=== PATIENT | female | born 1940 | race Two or more races ===

== ENCOUNTER 2019-05-12 14:11 | Inpatient (IN) | payer OTHER ==
--- NOTE | 2019-05-12 14:46 | PDOC ---
History of Present Illness - General History Source: Patient Exam Limitations: No Limitations, Language Barrier - History of Present Illness Initial Comments: Lena Hargrove is a 78 yo F w a hx of HTN, HCL, GERD, and recent UTI this past Wednesday diagnosed by her urologist Emiliana Colbert and treated with ciprofloxacin and phenazopyridine who presents to the [facility] er with persistent fevers, generalized body aches and pains, nausea, no vomiting, and persistent symptoms. The patient endorses left lower abdominal tenderness as well. She endorses nausea but no emesis. She took 975 mg of tylenol for her fevers last night but no anti-pyretics today. She recently travelled to [place] and returned this past Wednesday 5 days ago. She states her urine has been very discolored since she started taking the medications this past Wednesday. Patient was only taking ciprofloxacin once a day when she was supposed to take it 3 times a day because she didn't think it was helping. Denies chest pain, SOB, productive cough, vomiting, diarrhea, rashes, headache, blurry vision. PCP: Kobi Colbert Urologist: Emiliana Colbert PSH: cholecystectomy Social Hx: Denies smoking, drinking, or other subsatance usage Allergies: NKA, NKDA 05/12/19 16:08 <Sourav Mercer - Last Filed: 05/13/19 12:28> <Tamera Hunt - Last Filed: 05/13/19 15:02> - General Chief Complaint: SIRS, Suspected/Possible Stated Complaint: FEVER Time Seen by Provider: 05/12/19 14:45 Past History - Past Medical History COPD: No Disorders: Yes - Psycho Social/Smoking Cessation Hx Smoking History: Never smoked <Sourav Mercer - Last Filed: 05/13/19 12:28> <Tamera Hunt - Last Filed: 05/13/19 15:02> - Past Medical History Allergies/Adverse Reactions: Allergies Allergy/AdvReac Type Severity Reaction Status Date / Time No Known Allergies Allergy Verified 05/12/19 14:15 Home Medications: Ambulatory Orders Amlodipine Besylate 5 mg PO DAILY 05/12/19 Atorvastatin Calcium 20 mg PO DAILY 05/12/19 Mirabegron [Myrbetriq] 50 mg PO ASDIR 02/28/20 Pantoprazole Sodium 40 mg PO DAILY 05/12/19 Phenazopyridine HCl 1 tab PO TID 05/12/19 Review of Systems - Review of Systems Able to Perform ROS?: Yes Comments:: CONSTITUTIONAL: Present: Fevers, chills, fatigue EYES: Absent: visual changes ENT: Absent: ear pain, no sore throat CARDIOVASCULAR: Absent: chest pain, no palpitations RESPIRATORY: Absent: cough, no SOB GI: Present: Abdominal pain, nausea Absent: no vomiting, no constipation, no diarrhea GENITOURINARY: Present: dysuria, freuquency Absent: no hematuria MUSKULOSKELETAL: Present: back pain, myalgia Absent: no arthralgia SKIN: Absent: rash NEURO: Absent: headache <Sourav Mercer - Last Filed: 05/13/19 12:28> *Physical Exam - Vital Signs Last Vital Signs Temp Pulse Resp BP Pulse Ox 98.5 F 101 H 18 121/50 L 95 05/12/19 14:20 05/12/19 14:20 05/12/19 14:20 05/12/19 14:20 05/12/19 14:20 - Physical Exam GENERAL: Well-appearing, well-nourished. Mild distress. HEENT: Normocephalic, atraumatic. PERRL, EOM intact. CARDIOVASCULAR: Tachycardic rate. Normal S1, S2. Regular rhythm. PULMONARY: No evidence of respiratory distress. Lungs clear to auscultation bilaterally. No wheezing, rales or rhonchi. ABDOMEN: There is mild left lower abdominal TTP. Soft, non-distended, Normal BS. BACK: There is left sided flank pain EXTREMITIES: Normal ROM in all four extremities. No gross deformities. SKIN: Warm, dry. No rash NEUROLOGICAL: No focal neurological deficits. <Sourav Mercer - Last Filed: 05/13/19 12:28> - Vital Signs Last Vital Signs Temp Pulse Resp BP Pulse Ox 99.6 F 79 18 105/59 L 95 05/13/19 07:57 05/13/19 07:57 05/13/19 07:57 05/13/19 07:57 05/13/19 09:00 <Tamera Hunt - Last Filed: 05/13/19 15:02> ED Treatment Course - LABORATORY CBC & Chemistry Diagram: 05/13/19 09:45 05/13/19 06:48 <Sourav Mercer - Last Filed: 05/13/19 12:28> - LABORATORY CBC & Chemistry Diagram: 05/13/19 09:45 05/13/19 06:48 - ADDITIONAL ORDERS Additional order review: 05/12/19 15:00 Blood Culture - Preliminary Blood - Peripheral Venous Pending Organism 05/12/19 14:45 Blood Culture - Preliminary Blood - Peripheral Venous Pending Organism 05/12/19 14:45 RBC 4.28 MCV 86.4 MCHC 33.4 RDW 13.6 MPV 10.5 Neutrophils % 90.8 H Lymphocytes % 2.0 L Monocytes % 6.3 Eosinophils % 0.8 Basophils % 0.1 - Medications Given in the ED: ED Medications Discontinued Medications Generic Name Dose Route Start Last Admin Trade Name Cesilia PRN Reason Stop Dose Admin Acetaminophen 1,000 mg 05/12/19 18:02 05/12/19 22:38 Ofirmev Injection - IVPB 05/12/19 18:03 Not Given ONCE ONE Sodium Chloride 2,313 mls @ 1,156.5 mls/hr 05/12/19 14:47 05/12/19 15:20 Normal Saline - 30 ml/kg infuse over 2 hr (2313 ml) 05/12/19 16:46 1,156.5 mls/hr IV Administration ONCE ONE Ceftriaxone Sodium 1,000 mg/ 50 mls @ 100 mls/hr 05/12/19 15:51 05/12/19 15: 54 Dextrose IVPB 05/12/19 16:20 100 mls/hr ONCE ONE Administration Ceftriaxone Sodium 1 gm/ 50 mls @ 100 mls/hr 05/13/19 10:00 05/13/19 09:41 Dextrose IVPB 100 mls/hr DAILY FELY Administration Protocol Ceftriaxone Sodium 1 gm/ 50 mls @ 200 mls/hr 05/13/19 13:00 05/13/19 13:22 Dextrose IVPB 05/13/19 13:14 200 mls/hr ONCE ONE Administration Protocol Ondansetron HCl 4 mg 05/12/19 17:56 05/12/19 22:42 Zofran Injection IVPUSH 05/12/19 17:57 Not Given ONCE ONE Potassium Chloride 40 meq 05/12/19 16:53 05/12/19 16:56 Potassium Chloride Oral Liquid PO 05/12/19 16:54 40 meq ONCE ONE Administration Sodium Chloride 1,000 ml 05/12/19 18:03 05/12/19 22:39 Normal Saline - IV 05/12/19 18:04 Not Given ONCE ONE <Tamera Hunt - Last Filed: 05/13/19 15:02> Medical Decision Making - Medical Decision Making Patient was only taking ciprofloxacin once a day when she was supposed to take it 3 times a day because she didn't think it was helping. Lena Hargrove is a 78 yo F w a hx of HTN, HCL, GERD, and recent UTI this past Wednesday diagnosed by her urologist Emiliana Colbert and treated with ciprofloxacin and phenazopyridine who presents to the [facility] er with persistent fevers, generalized body aches and pains, nausea, no vomiting, and persistent symptoms. The patient endorses left lower abdominal tenderness as well. She endorses nausea but no emesis. She took 975 mg of tylenol for her fevers last night but no anti-pyretics today. She recently travelled to [place] and returned this past Wednesday 5 days ago. She states her urine has been very discolored since she started taking the medications this past Wednesday. Denies chest pain, SOB, productive cough, vomiting, diarrhea, rashes, headache, blurry vision. Vital Signs Temp Pulse Resp BP Pulse Ox 98.5 F 101 H 18 121/50 L 95 05/12/19 14:20 05/12/19 14:20 05/12/19 14:20 05/12/19 14:20 05/12/19 14:20 DDx IBNLT: UTI, pyelonephritis, diverticulitis, PNA, electrolyte/metabolic disturbance, Malaria, influenza, Plan: Labs, Urine, XR, IV hydration, re-assess Labs: Leukocytosis with left shift Urine: Suggests dirty urine infection XR: Unremarkable Re-assessment: Patient admits to not being compliant with her Abx - I called up Emiliana Colbert's office to find out the results of his urine culture but the office said the results were not yet back Disposition: Med/Surg for UTI and Left sided Pylonphritis <Sourav Mercer - Last Filed: 05/13/19 12:28> Discharge - Discharge Information Problems reviewed: Yes - Admission Yes <Sourav Mercer - Last Filed: 05/13/19 12:28> - Admission Yes <Tamera Hunt - Last Filed: 05/13/19 15:02> - Discharge Information Clinical Impression/Diagnosis: Pyelonephritis of left kidney Sepsis Qualifiers: Sepsis type: sepsis due to unspecified organism Sepsis acute organ dysfunction status: unspecified Qualified Code(s): A41.9 - Sepsis, unspecified organism Condition: Stable
[2019-05-12] MEDS ORDERED: SODIUM CHLORIDE 2,313 ML IV ONE (14:47)
[2019-05-12 15:17] LABS: BASO % 0.1 % (0-2.0); EOS % 0.8 % (0-4.5); HEMOGLOBIN 12.3 GM/dL (10.7-15.3); MCH 28.8 pg (25.7-33.7); MCHC 33.4 g/dl (32.0-36.0); MEAN CELL VOLUME 86.4 fl (80-96); MEAN PLT VOLUME 10.5 fl (7.5-11.1); MONO % 6.3 % (3.8-10.2); NEUT % 90.8 % (42.8-82.8); PLATELET COUNT 110 K/MM3 (134-434); RBC 4.28 M/mm3 (3.60-5.2); RDW 13.6 % (11.6-15.6); WHITE BLOOD COUNT 18.1 K/mm3 (4.0-10.0)
[2019-05-12 15:27] LABS: INR 1.15 (0.83-1.09); PROTHROMBIN TIME (PATIENT) 13.6 SEC (9.7-13.0)
[2019-05-12 15:30] LABS: ACTIVATED PTT 27.5 SECONDS (25.2-36.5)
[2019-05-12 15:47] LABS: EPI CELLS 8.1 /HPF (0-5/HPF); HYALINE CASTS 20 /lpf (0-8); PH,URINE 5.5 (5.0-8.0); URINE APPEARANCE TURBID; URINE BACTERIA 5123.6 /hpf (NEGATIVE); URINE BILIRUBIN 1+ (NEGATIVE); URINE COLOR DK YELLOW; URINE GLUCOSE (UA) NEGATIVE (NEGATIVE); URINE KETONE NEGATIVE (NEGATIVE); URINE LEUK ESTERASE 3+ (NEGATIVE); URINE NITRITE POSITIVE (NEGATIVE); URINE PROTEIN 2+ (NEGATIVE); URINE RBC 19 /hpf (0-4); URINE WBC 1308 /hpf (0-5)
[2019-05-12] MEDS ORDERED: CEFTRIAXONE 1,000 MG in DEXTROSE 5%-WATER - 50 ML IVPB ONE (15:51)
[2019-05-12] MEDS ORDERED: cefTRIAXone SODIUM 1 GM VIAL ONE (15:58)
--- NOTE | 2019-05-12 16:50 | PDOC ---
Attending Attestation - Resident Resident Name: Sourav Mercer - ED Attending Attestation I have performed the following: I have examined & evaluated the patient, The case was reviewed & discussed with the resident, I agree w/resident's findings & plan - HPI HPI: 05/12/19 16:49 78 yo F w a hx of HTN, HCL, GERD, and recent UTI this past Wednesday diagnosed by her urologist Emiliana Colbert and treated with ciprofloxacin and phenazopyridine who presents to the [facility] er with persistent fevers (Tmax 104), generalized body aches and pains, nausea, and urinary sx. The patient endorses left lower abdominal tenderness as well. She took 975 mg of tylenol for her fevers last night but no anti-pyretics today. She recently travelled to [place] and returned this past Wednesday 5 days ago. She states her urine has been very discolored since she started taking the medications this past Wednesday. Patient was only taking ciprofloxacin once a day when she was supposed to take it 3 times a day because she didn't think it was helping. rx'd by her urologist Denies chest pain, SOB, productive cough, vomiting, diarrhea, rashes, headache, blurry vision. PCP: Kobi Colbert 05/12/19 17:40 - Physicial Exam PE: 05/12/19 16:49 Agree with the resident's HPI and PE as documented in the electronic medical record. NAD, well appearing, EOMI, PERRL, nl conjunctiva, anicteric; neck supple. lungs clear, RRR, abdomen soft nontender. no rebound, guarding. no CVAT. Back nontender. BOATENG x4, no focal neuro deficits. No peripheral edema. normal color for ethnicity, WWP. 05/12/19 17:40 - Medical Decision Making 05/12/19 16:49 Vital Signs Temp Pulse Resp BP Pulse Ox 98.5 F 101 H 18 121/50 L 95 05/12/19 14:20 05/12/19 14:20 05/12/19 14:20 05/12/19 14:20 05/12/19 14:20 vs reviewed, afebrile historically with Tmax 104 in the past 4 days. ddx. UTI/ pyelo, bacteremia, dehydration, anemia, electrolyte/metabolic derangements wbc ct elevated 18K abdomen exam unremarkable. no cvat on my exam no systemic findings here, occ elevated HR low 100s given hydration remainder of labs and lytes with low K 3.4, repleted orally 40meq. UA with +leuk esterase, wbcs and nitrites, likely nitrate producing organism. IV ceftriaxone, f/u urine cultures treating for acute pyelo, failed outpatient abx admitted to Dr Meza. pt and family aware of impression and plan, agreeable. 05/12/19 17:40 05/12/19 17:42
[2019-05-12 16:51] LABS: ALBUMIN 2.8 g/dl (3.4-5.0); BILIRUBIN,TOTAL 1.6 mg/dL (0.2-1); BLOOD UREA NITROGEN 18.7 mg/dL (7-18); CALCIUM 8.4 mg/dL (8.5-10.1); CREATININE 1.1 mg/dL (0.55-1.3); TOT PROT 6.4 g/dl (6.4-8.2)
[2019-05-12 16:52] LABS: POTASSIUM 3.4 mmol/L (3.5-5.1)
[2019-05-12] MEDS ORDERED: POTASSIUM CHLORIDE ORAL LIQUID 20 MEQ/15 ML PO ONE (16:53)
[2019-05-12] MEDS ORDERED: POTASSIUM CHLORIDE ORAL LIQUID 20 MEQ/15 ML ONE (16:54)
[2019-05-12] MEDS ORDERED: ONDANSETRON 4 MG/2 ML VIAL IVPUSH ONE (17:56)
[2019-05-12] MEDS ORDERED: ONDANSETRON 4 MG/2 ML VIAL ONE (17:57)
[2019-05-12] MEDS ORDERED: ACETAMINOPHEN 1000 MG/100 ML VIAL (NON FORMULARY) IVPB ONE (18:02)
[2019-05-12] MEDS ORDERED: SODIUM CHLORIDE 0.9% 500 ML INFUS.BAG IV ONE (18:03)
--- NOTE | 2019-05-12 22:38 | HP ---
Admitting History and Physical - Smoking History Smoking history: Never smoked - Alcohol/Substance Use Hx Alcohol Use: No Home Medications - Allergies Allergies/Adverse Reactions: Allergies Allergy/AdvReac Type Severity Reaction Status Date / Time No Known Allergies Allergy Verified 05/12/19 14:15 - Home Medications Home Medications: Ambulatory Orders Amlodipine Besylate 5 mg PO DAILY 05/12/19 Atorvastatin Calcium 20 mg PO DAILY 05/12/19 Mirabegron [Myrbetriq] 50 mg PO ASDIR 05/12/19 Pantoprazole Sodium 40 mg PO DAILY 05/12/19 Phenazopyridine HCl 1 tab PO TID 05/12/19 Physical Examination Vital Signs: Vital Signs Temperature 99.2 F 05/12/19 20:45 Pulse Rate 77 05/12/19 20:45 Respiratory Rate 20 05/12/19 20:45 Blood Pressure 114/56 L 05/12/19 20:45 O2 Sat by Pulse Oximetry (%) 95 05/12/19 21:10 Labs: CBC, BMP 05/12/19 14:45 05/12/19 14:53
[2019-05-12] MEDS: DEXTROSE 5%-0.45% SALINE 1,000 ML IV SCH (22:55)
[2019-05-13] MEDS: ACETAMINOPHEN 325 MG TABLET (FP) PO PRN ×4 (01:16→21:37)
[2019-05-13 07:49] LABS: ALBUMIN 2.7 g/dl (3.4-5.0); BILIRUBIN,TOTAL 1.7 mg/dL (0.2-1); BLOOD UREA NITROGEN 12.9 mg/dL (7-18); CALCIUM 8.7 mg/dL (8.5-10.1); POTASSIUM 3.8 mmol/L (3.5-5.1)
[2019-05-13] MEDS ORDERED: DEXTROSE 5%-WATER - 50 ML IVPB ONE ×2 (09:25→13:16)
[2019-05-13] MEDS ORDERED: cefTRIAXone SODIUM 1 GM VIAL ONE ×2 (09:25→13:16)
[2019-05-13] MEDS: PANTOPRAZOLE 40 MG TABLET PO SCH (09:40)
[2019-05-13] MEDS: HEPARIN NA (PORCINE) 5,000 UNITS/ML 1ML VIAL SQ SCH ×2 (09:42→21:37)
[2019-05-13 10:00] LABS: HEMATOCRIT 32.4 % (32.4-45.2); HEMOGLOBIN 10.8 GM/dL (10.7-15.3); MCH 28.9 pg (25.7-33.7); MCHC 33.4 g/dl (32.0-36.0); MEAN CELL VOLUME 86.5 fl (80-96); MEAN PLT VOLUME 9.8 fl (7.5-11.1); PLATELET COUNT 99 K/MM3 (134-434); RBC 3.74 M/mm3 (3.60-5.2); RDW 13.7 % (11.6-15.6); WHITE BLOOD COUNT 14.2 K/mm3 (4.0-10.0)
[2019-05-13] MEDS ORDERED: CEFTRIAXONE 1 GM in DEXTROSE 5%-WATER - 50 ML IVPB SCH (10:00)
--- NOTE | 2019-05-13 12:43 | CON.ID ---
Consult - History of Present Illness History of Present Illness: 78 y.o. female with PMH of HTN, GERD presents with c/o persistent fevers/rigors , lower abdominal pain/nausea, dysuria/urinary frequency, and generalized body aches. She states that the dysuria began while she was on a trip to [place] (Apr 30-) and started developing fever 5 days ago. She went to her PMD and urologist after and was prescribed antibiotics (Cipro as per records, pt herself does not recall name). Questionable whether pt was compliant/taking proper dosing as instructed. In addition, she has been on Mirabegron for overactive bladder and Phenazopyridine. After taking antibiotics for 3 days she states symptoms persisted and she came to the ER. In the ER, she was noted to by tachycardic, febrile (101.7F), with leukocytosis (wbc 18K). Her U/A is consistent with a urinary infection and she has been started on empiric antibiotics. Pt denies flank pain. Today she is alert and fully responsive, without distress, and reports improvement in dysuria and lower abd/suprapubic pain although still febrile through this am. Her wbc ct has decreased to 14K. She has no other specific complaints other than chills. Lab results noted. Blood cultures show growth of organism. - History Source History Provided By: Patient, Medical Record Limitations to Obtaining History: No Limitations - Past Medical History Cardio/Vascular: Yes: HTN, Hyperlipdemia Gastrointestinal: Yes: GERD - Alcohol/Substance Use Hx Alcohol Use: No - Smoking History Smoking history: Never smoked - Social History History of Recent Travel: Yes ([place]) Home Medications - Allergies Allergies/Adverse Reactions: Allergies Allergy/AdvReac Type Severity Reaction Status Date / Time No Known Allergies Allergy Verified 05/12/19 14:15 - Home Medications Home Medications: Ambulatory Orders Amlodipine Besylate 5 mg PO DAILY 05/12/19 Atorvastatin Calcium 20 mg PO DAILY 05/12/19 Mirabegron [Myrbetriq] 50 mg PO ASDIR 05/12/19 Pantoprazole Sodium 40 mg PO DAILY 05/12/19 Phenazopyridine HCl 1 tab PO TID 05/12/19 Review of Systems - Review of Systems Constitutional: reports: Chills, Fever, Loss of Appetite, Weakness. denies: No Symptoms, Diaphoresis, Lethargy, Malaise, Night Sweats, Unintentional Wgt. Loss , Other Eyes: reports: No Symptoms. denies: Blind Spots, Blurred Vision, Double Vision , Eye Pain, Floaters, Photophobia, Recent Change in Vision, Other HENT: reports: No Symptoms. denies: Difficult Swallowing, Ear Discharge, Ear Pain, Epistaxis, Gingival Bleeding, Hearing Loss, Mouth Swelling, Nasal Congestion, Ocular Prosthesis, Throat Pain, Toothache, Ringing in Ears, Other Neck: reports: No Symptoms. denies: Decreased ROM, Lumps, Pain on Movement, Stiffness, Swollen Glands, Tenderness, Other Cardiovascular: reports: No Symptoms. denies: Chest Pain, Edema, Palpitations, Shortness of Breath, Other Respiratory: reports: No Symptoms. denies: Cough, Exercise Intolerance, Hemoptysis, Orthopnea, PND, Snoring, SOB, SOB on Exertion, Wheezing, Other Gastrointestinal: reports: No Symptoms. denies: Abdominal Pain, Bloating, Constipation, Diarrhea, Dysphagia, Indigestion, Melena, Nausea, Rectal Bleeding , Vomiting, Vomiting Blood, Other Genitourinary: reports: Dysuria, Frequency Musculoskeletal: reports: No Symptoms. denies: Back Pain, Crepitus, Decreased ROM, Extremity Pain, Joint Pain, Joint Swelling, Muscle Pain, Muscle Cramps, Muscle Weakness, Other Integumentary: reports: No Symptoms. denies: Blister, Bruising, Change in Color , Eczema, Erythema, Incision, Lesions, Lump, Pallor, Pruritis, Rash, Wound, Other Neurological: reports: No Symptoms. denies: Change in LOC, Change in Speech, Confusion, Dizziness, Headache, Incoordination, Numbness, Parasthesia, Pre- Existing Deficit, Seizure, Syncope, Tremors, Unsteady Gait, Weakness, Other Endocrine: reports: No Symptoms. denies: Excessive Sweating, Flushing, Increased Hunger, Increased Thirst, Intolerance to Cold, Intolerance to Heat, Unexplained Weight Gain, Unexplained Weight Loss, Other Hematology/Lymphatic: reports: No Symptoms. denies: Easily Bruised, Excessive Bleeding, Swollen Glands, Other Psychiatric: reports: No Symptoms. denies: Altered Sleep Pattern, Anxiety, Depression, Hallucinations, Panic, Paranoia, Suicidal, Other Physical Exam Vital Signs: Vital Signs Temperature 99.6 F 05/13/19 07:57 Pulse Rate 79 02/29/20 07:57 Respiratory Rate 18 05/13/19 07:57 Blood Pressure 105/59 L 05/13/19 07:57 O2 Sat by Pulse Oximetry (%) 95 05/12/19 21:10 Constitutional: Yes: No Distress, Calm Eyes: Yes: Conjunctiva Clear, EOM Intact HENT: Yes: Atraumatic, Normocephalic Neck: Yes: Supple, Trachea Midline Cardiovascular: Yes: Tachycardia Respiratory: Yes: CTA Bilaterally Gastrointestinal: Yes: Normal Bowel Sounds, Soft Renal/: Yes: WNL Extremities: Yes: WNL Edema: No Integumentary: Yes: WNL Neurological: Yes: Alert, Oriented Psychiatric: Yes: Alert Labs: CBC, BMP 05/13/19 09:45 05/13/19 06:48 Laboratory Tests 05/12/19 05/12/19 05/12/19 14:45 14:45 14:53 WBC 18.1 H RBC 4.28 Hgb 12.3 Hct 37.0 MCV 86.4 MCH 28.8 MCHC 33.4 RDW 13.6 Plt Count 110 L D MPV 10.5 Absolute Neuts (auto) 16.5 H Neutrophils % 90.8 H Neutrophils % (Manual) Lymphocytes % 2.0 L Monocytes % 6.3 Eosinophils % 0.8 Basophils % 0.1 Nucleated RBC % 0 PT with INR 13.60 H INR 1.15 H PTT (Actin FS) 27.5 Sodium 135 L Potassium 3.4 L Chloride 101 Carbon Dioxide 26 Anion Gap 9 BUN 18.7 H Creatinine 1.1 Est GFR (CKD-EPI)AfAm 55.30 Est GFR (CKD-EPI)NonAf 47.71 Random Glucose 136 H Lactic Acid Calcium 8.4 L Total Bilirubin 1.6 H AST 54 H ALT 50 Alkaline Phosphatase 181 H Creatine Kinase 388 H Creatine Kinase Index 0.5 CK-MB (CK-2) 2.18 Troponin I 0.04 Total Protein 6.4 Albumin 2.8 L Urine Color Urine Appearance Urine pH Ur Specific [place] Urine Protein Urine Glucose (UA) Urine Ketones Urine Blood Urine Nitrite Urine Bilirubin Urine Urobilinogen Ur Leukocyte Esterase Urine WBC (Auto) Urine RBC (Auto) Urine Casts (Auto) U Pathogenic Cast Auto U Epithel Cells (Auto) Urine Bacteria (Auto) 05/12/19 05/12/19 05/13/19 14:55 15:30 06:48 WBC RBC Fur Vault Attendant Hgb Fur Vault Attendant Hct Fur Vault Attendant MCV Fur Vault Attendant MCH Fur Vault Attendant MCHC Fur Vault Attendant RDW Fur Vault Attendant Plt Count No Result Required. MPV Fur Vault Attendant Absolute Neuts (auto) Fur Vault Attendant Neutrophils % Fur Vault Attendant Neutrophils % (Manual) No Result Required. Lymphocytes % Fur Vault Attendant Monocytes % Fur Vault Attendant Eosinophils % Fur Vault Attendant Basophils % Fur Vault Attendant Nucleated RBC % PT with INR INR PTT (Actin FS) Sodium Potassium Chloride Carbon Dioxide Anion Gap BUN Creatinine Est GFR (CKD-EPI)AfAm Est GFR (CKD-EPI)NonAf Random Glucose Lactic Acid 2.0 Calcium Total Bilirubin AST ALT Alkaline Phosphatase Creatine Kinase Creatine Kinase Index CK-MB (CK-2) Troponin I Total Protein Albumin Urine Color Dk yellow Urine Appearance Turbid Urine pH 5.5 Ur Specific [place] 1.013 Urine Protein 2+ H Urine Glucose (UA) Negative Urine Ketones Negative Urine Blood 2+ H Urine Nitrite Positive H Urine Bilirubin 1+ H Urine Urobilinogen 1.0 Ur Leukocyte Esterase 3+ H Urine WBC (Auto) 1308 Urine RBC (Auto) 19 Urine Casts (Auto) 20 U Pathogenic Cast Auto TNP U Epithel Cells (Auto) 8.1 Urine Bacteria (Auto) 5123.6 05/13/19 05/13/19 06:48 09:45 WBC 14.2 H RBC 3.74 Hgb 10.8 Hct 32.4 MCV 86.5 MCH 28.9 MCHC 33.4 RDW 13.7 Plt Count 99 L MPV 9.8 Absolute Neuts (auto) Neutrophils % Neutrophils % (Manual) Lymphocytes % Monocytes % Eosinophils % Basophils % Nucleated RBC % PT with INR INR PTT (Actin FS) Sodium 139 Potassium 3.8 Chloride 108 H Carbon Dioxide 24 Anion Gap 7 L BUN 12.9 Creatinine 1.0 Est GFR (CKD-EPI)AfAm 62.05 Est GFR (CKD-EPI)NonAf 53.54 Random Glucose 114 H Lactic Acid Calcium 8.7 Total Bilirubin 1.7 H AST 66 H ALT 56 Alkaline Phosphatase 186 H Creatine Kinase Creatine Kinase Index CK-MB (CK-2) Troponin I Total Protein 6.0 L Albumin 2.7 L Urine Color Urine Appearance Urine pH Ur Specific [place] Urine Protein Urine Glucose (UA) Urine Ketones Urine Blood Urine Nitrite Urine Bilirubin Urine Urobilinogen Ur Leukocyte Esterase Urine WBC (Auto) Urine RBC (Auto) Urine Casts (Auto) U Pathogenic Cast Auto U Epithel Cells (Auto) Urine Bacteria (Auto) Microbiology 05/12/19 15:00 Blood - Peripheral Venous Blood Culture - Preliminary Pending Organism 05/12/19 14:45 Blood - Peripheral Venous Blood Culture - Preliminary Pending Organism Imaging - Results Chest X-ray: Report Reviewed Problem List - Problems (1) Sepsis Code(s): A41.9 - SEPSIS, UNSPECIFIED ORGANISM Qualifiers: Sepsis type: sepsis due to unspecified organism Sepsis acute organ dysfunction status: unspecified Qualified Code(s): A41.9 - Sepsis, unspecified organism (2) UTI (urinary tract infection) Code(s): N39.0 - URINARY TRACT INFECTION, SITE NOT SPECIFIED Qualifiers: Urinary tract infection type: acute cystitis Hematuria presence: with hematuria Qualified Code(s): N30.01 - Acute cystitis with hematuria Assessment/Plan 78 y.o. female with PMH of HTN, GERD presents with c/o persistent fevers/rigors , lower abdominal pain/nausea, dysuria/urinary frequency, and generalized body aches. She states that the dysuria began while she was on a trip to [place] (Apr 30-) and started developing fever 5 days ago Sepsis UTI/Possible Acute Pyelonephritis Bacteremia Leukocytosis Fever HTN HLD -- continue Ceftriaxone for now, increase dose to 2 grams daily -- follow up results of urine culture and the isolates in blood cultures -- continue monitor wbc trend (decreased since yesterday), monitor temps -- repeat blood cultures -- if no clinical improvement suggest CT A/P -- monitor vitals closely Will follow Thank you
[2019-05-13] MEDS ORDERED: CEFTRIAXONE 1 GM in DEXTROSE 5%-WATER - 50 ML IVPB ONE (13:00)
--- NOTE | 2019-05-13 13:27 | EKG ---
Test Reason : Blood Pressure : / mmHG Vent. Rate : 078 BPM Atrial Rate : 078 BPM P-R Int : 140 ms QRS Dur : 092 ms QT Int : 394 ms P-R-T Axes : 023 004 008 degrees QTc Int : 449 ms NORMAL SINUS RHYTHM MINIMAL VOLTAGE CRITERIA FOR LVH, MAY BE NORMAL VARIANT NO PREVIOUS ECGS AVAILABLE Confirmed by TANA MAYES MD ([id number]) on 05/13/2019 1:27:01 PM Referred By: Confirmed By:TANA MAYES MD
[2019-05-13] MEDS: DEXTROSE 5%-0.45% SALINE 1,000 ML IV SCH (14:03)
--- NOTE | 2019-05-13 16:22 | PN ---
Progress Note, Physician - Current Medication List Current Medications: Active Medications Acetaminophen (Tylenol -) 650 mg PO Q6H PRN PRN Reason: FEVER Last Admin: 05/13/19 14:01 Dose: 650 mg Amlodipine Besylate (Norvasc -) 5 mg PO DAILY [facility] Atorvastatin Calcium (Lipitor -) 20 mg PO HS [facility] Heparin Sodium (Porcine) (Heparin -) 5,000 unit SQ BID [facility] Last Admin: 05/13/19 09:42 Dose: 5,000 unit Dextrose/Sodium Chloride (D5-1/2ns -) 1,000 mls @ 75 mls/hr IV ASDIR FELY Last Admin: 05/13/19 14:03 Dose: 75 mls/hr Ceftriaxone Sodium 2 gm/ (Dextrose) 100 mls @ 100 mls/hr IVPB DAILY [facility]; Protocol Pantoprazole Sodium (Protonix -) 40 mg PO DAILY [facility] Last Admin: 05/13/19 09:40 Dose: 40 mg - Objective Vital Signs: Vital Signs Temperature 98.5 F 05/13/19 15:01 Pulse Rate 80 05/13/19 15:01 Respiratory Rate 18 05/13/19 15:01 Blood Pressure 113/50 L 05/13/19 15:01 O2 Sat by Pulse Oximetry (%) 95 05/13/19 09:00 Constitutional: Yes: No Distress HENT: Yes: Atraumatic Neck: Yes: Supple Cardiovascular: Yes: Regular Rate and Rhythm Respiratory: Yes: Rhonchi Gastrointestinal: Yes: Normal Bowel Sounds Extremities: Yes: WNL Edema: No Neurological: Yes: Alert, Oriented Labs: CBC, BMP 05/13/19 09:45 05/13/19 06:48 INR, PTT INR 1.15 (0.83-1.09) H 05/12/19 14:45 Problem List - Problems (1) Pyelonephritis of left kidney Code(s): N12 - TUBULO-INTERSTITIAL NEPHRITIS, NOT SPCF ACUTE OR CHRONIC (2) Sepsis Assessment/Plan: IV ABX CXS SENT ID ON BOARD Code(s): A41.9 - SEPSIS, UNSPECIFIED ORGANISM Qualifiers: Sepsis type: sepsis due to unspecified organism Sepsis acute organ dysfunction status: unspecified Qualified Code(s): A41.9 - Sepsis, unspecified organism (3) HTN (hypertension) Assessment/Plan: ON MEDS Code(s): I10 - ESSENTIAL (PRIMARY) HYPERTENSION (4) HLD (hyperlipidemia) Assessment/Plan: ON MEDS Code(s): E78.5 - HYPERLIPIDEMIA, UNSPECIFIED Assessment/Plan COVERING FOR DR RODRIGUEZ TODAY
[2019-05-13] MEDS: amLODIPine BESYLATE 5 MG TABLET (FP) PO SCH (18:06)
[2019-05-13] MEDS: ATORVASTATIN CA 20 MG TABLET (FP) PO SCH (21:37)
[2019-05-14] MEDS: DEXTROSE 5%-0.45% SALINE 1,000 ML IV SCH ×4 (01:04→23:09)
[2019-05-14] MEDS: ACETAMINOPHEN 325 MG TABLET (FP) PO PRN ×2 (05:23→17:16)
[2019-05-14 08:05] LABS: BASO % 0.3 % (0-2.0); EOS % 0.4 % (0-4.5); HEMOGLOBIN 10.4 GM/dL (10.7-15.3); LYMPH % 4.4 % (8-40); MCH 29.1 pg (25.7-33.7); MCHC 33.6 g/dl (32.0-36.0); MEAN CELL VOLUME 86.6 fl (80-96); MEAN PLT VOLUME 10.6 fl (7.5-11.1); MONO % 9.9 % (3.8-10.2); PLATELET COUNT 107 K/MM3 (134-434); RBC 3.58 M/mm3 (3.60-5.2); RDW 13.6 % (11.6-15.6); WHITE BLOOD COUNT 11.3 K/mm3 (4.0-10.0)
[2019-05-14] MEDS ORDERED: DEXTROSE 5%-WATER 100 ML IVPB ONE (09:04)
[2019-05-14] MEDS: amLODIPine BESYLATE 5 MG TABLET (FP) PO SCH (09:32)
[2019-05-14] MEDS: PANTOPRAZOLE 40 MG TABLET PO SCH (09:32)
[2019-05-14] MEDS: HEPARIN NA (PORCINE) 5,000 UNITS/ML 1ML VIAL SQ SCH ×2 (09:33→21:46)
[2019-05-14] MEDS: CEFTRIAXONE 2 GM in DEXTROSE 5%-WATER 100 ML IVPB SCH (09:36)
[2019-05-14 12:39] VITALS: BMI 34.2
--- NOTE | 2019-05-14 14:07 | PN ---
Progress Note, Physician History of Present Illness: Pt states she is feeling better. Abdominal pain and dysuria has resolved. No rigors noted today. She has no new complaints. Urine/Blood culture results noted. - Current Medication List Current Medications: Active Medications Acetaminophen (Tylenol -) 650 mg PO Q6H PRN PRN Reason: FEVER Last Admin: 05/14/19 05:23 Dose: 650 mg Amlodipine Besylate (Norvasc -) 5 mg PO DAILY [facility] Last Admin: 05/14/19 09:32 Dose: Not Given Atorvastatin Calcium (Lipitor -) 20 mg PO HS [facility] Last Admin: 05/13/19 21:37 Dose: 20 mg Heparin Sodium (Porcine) (Heparin -) 5,000 unit SQ BID [facility] Last Admin: 05/14/19 09:33 Dose: 5,000 unit Dextrose/Sodium Chloride (D5-1/2ns -) 1,000 mls @ 75 mls/hr IV ASDIR [facility] Last Admin: 05/14/19 03:42 Dose: 75 mls/hr Ceftriaxone Sodium 2 gm/ (Dextrose) 100 mls @ 100 mls/hr IVPB DAILY [facility]; Protocol Last Admin: 05/14/19 09:36 Dose: 100 mls/hr Pantoprazole Sodium (Protonix -) 40 mg PO DAILY [facility] Last Admin: 05/14/19 09:32 Dose: 40 mg - Objective Vital Signs: Vital Signs Temperature 99.4 F 05/14/19 06:57 Pulse Rate 82 05/14/19 06:07 Respiratory Rate 20 05/14/19 06:07 Blood Pressure 150/69 05/14/19 06:07 O2 Sat by Pulse Oximetry (%) 95 05/13/19 21:00 Constitutional: Yes: No Distress, Calm Eyes: Yes: Conjunctiva Clear HENT: Yes: Atraumatic Neck: Yes: Supple Cardiovascular: Yes: Regular Rate and Rhythm Respiratory: Yes: CTA Bilaterally Gastrointestinal: Yes: Normal Bowel Sounds, Soft Genitourinary: Yes: WNL Musculoskeletal: Yes: WNL Extremities: Yes: WNL Integumentary: Yes: WNL Neurological: Yes: Alert, Oriented Labs: CBC, BMP 05/14/19 07:20 05/13/19 06:48 INR, PTT INR 1.15 (0.83-1.09) H 05/12/19 14:45 Microbiology 05/12/19 15:00 Blood - Peripheral Venous Blood Culture - Preliminary Lactose Fermenting Neg Bacilli 05/12/19 14:45 Blood - Peripheral Venous Blood Culture - Preliminary Lactose Fermenting Neg Bacilli 05/12/19 15:30 Urine - Urine Clean Catch Urine Culture - Preliminary Lactose Fermenting Neg Bacilli Problem List - Problems (1) Sepsis Code(s): A41.9 - SEPSIS, UNSPECIFIED ORGANISM Qualifiers: Sepsis type: sepsis due to unspecified organism Sepsis acute organ dysfunction status: unspecified Qualified Code(s): A41.9 - Sepsis, unspecified organism (2) UTI (urinary tract infection) Code(s): N39.0 - URINARY TRACT INFECTION, SITE NOT SPECIFIED Qualifiers: Urinary tract infection type: acute cystitis Hematuria presence: with hematuria Qualified Code(s): N30.01 - Acute cystitis with hematuria Assessment/Plan 78 y.o. female with PMH of HTN, GERD presents with c/o persistent fevers/rigors , lower abdominal pain/nausea, dysuria/urinary frequency, and generalized body aches. She states that the dysuria began while she was on a trip to [place] (Apr 30-) and started developing fever 5 days ago Sepsis UTI/Possible Acute Pyelonephritis Gram negative Bacteremia Leukocytosis Fever HTN HLD -- continue Ceftriaxone -- follow up results of urine culture and the isolates in blood cultures -- repeat blood cultures sent/pending -- leukocytosis resolving -- continue monitor temps (102F last night, afebrile today) -- Pt's symptoms improved -- continue monitor vitals, wbc trend Pt stable
[2019-05-14] MEDS: ATORVASTATIN CA 20 MG TABLET (FP) PO SCH (21:46)
--- NOTE | 2019-05-14 22:22 | PN ---
Progress Note, Physician History of Present Illness: No further rigors - Current Medication List Current Medications: Active Medications Acetaminophen (Tylenol -) 650 mg PO Q6H PRN PRN Reason: FEVER Last Admin: 05/14/19 17:16 Dose: 650 mg Amlodipine Besylate (Norvasc -) 5 mg PO DAILY [facility] Last Admin: 05/14/19 09:32 Dose: Not Given Atorvastatin Calcium (Lipitor -) 20 mg PO HS [facility] Last Admin: 05/14/19 21:46 Dose: 20 mg Heparin Sodium (Porcine) (Heparin -) 5,000 unit SQ BID [facility] Last Admin: 05/14/19 21:46 Dose: 5,000 unit Dextrose/Sodium Chloride (D5-1/2ns -) 1,000 mls @ 75 mls/hr IV ASDIR [facility] Last Admin: 05/14/19 18:21 Dose: 75 mls/hr Ceftriaxone Sodium 2 gm/ (Dextrose) 100 mls @ 100 mls/hr IVPB DAILY [facility]; Protocol Last Admin: 05/14/19 09:36 Dose: 100 mls/hr Pantoprazole Sodium (Protonix -) 40 mg PO DAILY [facility] Last Admin: 05/14/19 09:32 Dose: 40 mg - Objective Vital Signs: Vital Signs Temperature 98.1 F 05/14/19 21:50 Pulse Rate 64 05/14/19 21:50 Respiratory Rate 18 05/14/19 21:50 Blood Pressure 131/61 05/14/19 21:50 O2 Sat by Pulse Oximetry (%) 95 05/14/19 09:00 Cardiovascular: Yes: WNL, Regular Rate and Rhythm Respiratory: Yes: WNL, Regular, CTA Bilaterally Gastrointestinal: Yes: WNL, Normal Bowel Sounds, Soft Labs: CBC, BMP 05/14/19 07:20 05/13/19 06:48 INR, PTT INR 1.15 (0.83-1.09) H 05/12/19 14:45 Problem List - Problems (1) Sepsis Assessment/Plan: Due to bacteremia/UTI BC/urine cultures (+) for [place]ot[place] fermenting gram neg bacilli However repeat BC remain negative Cont IVFCont IV ceftriaxone Code(s): A41.9 - SEPSIS, UNSPECIFIED ORGANISM Qualifiers: Sepsis type: sepsis due to unspecified organism Sepsis acute organ dysfunction status: unspecified Qualified Code(s): A41.9 - Sepsis, unspecified organism (2) HTN (hypertension) Assessment/Plan: Cont norvasc BP stable Code(s): I10 - ESSENTIAL (PRIMARY) HYPERTENSION (3) HLD (hyperlipidemia) Assessment/Plan: Cont lipitor Code(s): E78.5 - HYPERLIPIDEMIA, UNSPECIFIED
[2019-05-15 06:13] LABS: BASO % 0.5 % (0-2.0); EOS % 0.8 % (0-4.5); HEMATOCRIT 32.7 % (32.4-45.2); HEMOGLOBIN 11.1 GM/dL (10.7-15.3); MCH 29.1 pg (25.7-33.7); MCHC 33.8 g/dl (32.0-36.0); MEAN CELL VOLUME 86.2 fl (80-96); MEAN PLT VOLUME 10.5 fl (7.5-11.1); MONO % 8.3 % (3.8-10.2); NEUT % 82.4 % (42.8-82.8); PLATELET COUNT 125 K/MM3 (134-434); WHITE BLOOD COUNT 9.2 K/mm3 (4.0-10.0)
[2019-05-15 06:54] LABS: ALBUMIN 2.2 g/dl (3.4-5.0); BILIRUBIN,TOTAL 1.1 mg/dL (0.2-1); BLOOD UREA NITROGEN 11.9 mg/dL (7-18); CREATININE 0.8 mg/dL (0.55-1.3); POTASSIUM 3.8 mmol/L (3.5-5.1); TOT PROT 5.4 g/dl (6.4-8.2)
--- NOTE | 2019-05-15 07:07 | PN ---
Progress Note, Physician History of Present Illness: starting to feel better says she feels good blood cx and urine positive - Current Medication List Current Medications: Active Medications Acetaminophen (Tylenol -) 650 mg PO Q6H PRN PRN Reason: FEVER Last Admin: 05/14/19 17:16 Dose: 650 mg Amlodipine Besylate (Norvasc -) 5 mg PO DAILY [facility] Last Admin: 05/14/19 09:32 Dose: Not Given Atorvastatin Calcium (Lipitor -) 20 mg PO HS [facility] Last Admin: 05/14/19 21:46 Dose: 20 mg Heparin Sodium (Porcine) (Heparin -) 5,000 unit SQ BID [facility] Last Admin: 05/14/19 21:46 Dose: 5,000 unit Dextrose/Sodium Chloride (D5-1/2ns -) 1,000 mls @ 75 mls/hr IV ASDIR [facility] Last Admin: 05/14/19 23:09 Dose: Not Given Ceftriaxone Sodium 2 gm/ (Dextrose) 100 mls @ 100 mls/hr IVPB DAILY [facility]; Protocol Last Admin: 05/14/19 09:36 Dose: 100 mls/hr Pantoprazole Sodium (Protonix -) 40 mg PO DAILY [facility] Last Admin: 05/14/19 09:32 Dose: 40 mg - Objective Vital Signs: Vital Signs Temperature 98.4 F 05/15/19 06:24 Pulse Rate 58 L 05/15/19 06:24 Respiratory Rate 20 05/15/19 06:24 Blood Pressure 128/53 L 05/15/19 06:24 O2 Sat by Pulse Oximetry (%) 95 05/14/19 21:00 Constitutional: Yes: No Distress, Calm Cardiovascular: Yes: S1, S2 Respiratory: Yes: Regular, CTA Bilaterally Gastrointestinal: Yes: Normal Bowel Sounds, Soft Musculoskeletal: Yes: WNL Extremities: Yes: WNL Neurological: Yes: Alert, Oriented Labs: CBC, BMP 05/15/19 05:36 05/15/19 05:36 INR, PTT INR 1.15 (0.83-1.09) H 05/12/19 14:45 Assessment/Plan Problem List - Problems (1) Sepsis Code(s): A41.9 - SEPSIS, UNSPECIFIED ORGANISM Qualifiers: Sepsis type: sepsis due to unspecified organism Sepsis acute organ dysfunction status: unspecified Qualified Code(s): A41.9 - Sepsis, unspecified organism (2) UTI (urinary tract infection) Code(s): N39.0 - URINARY TRACT INFECTION, SITE NOT SPECIFIED Qualifiers: Urinary tract infection type: acute cystitis Hematuria presence: with hematuria Qualified Code(s): N30.01 - Acute cystitis with hematuria 3 gm negative bacteremia 4 weakness Assessment/Plan 78 y.o. female with PMH of HTN, GERD presents with c/o persistent fevers/rigors , lower abdominal pain/nausea, dysuria/urinary frequency, and generalized body aches. She states that the dysuria began while she was on a trip to [place] (Apr 30-) and started developing fever 5 days ago Sepsis UTI/Possible Acute Pyelonephritis Gram negative Bacteremia Leukocytosis Fever HTN HLD plan continue current mgmt will check repeat blood cx
[2019-05-15] MEDS ORDERED: DEXTROSE 5%-WATER 100 ML IVPB ONE (08:55)
[2019-05-15] MEDS: PANTOPRAZOLE 40 MG TABLET PO SCH (09:32)
[2019-05-15] MEDS: amLODIPine BESYLATE 5 MG TABLET (FP) PO SCH (09:32)
[2019-05-15] MEDS: HEPARIN NA (PORCINE) 5,000 UNITS/ML 1ML VIAL SQ SCH ×2 (09:32→21:09)
[2019-05-15] MEDS: CEFTRIAXONE 2 GM in DEXTROSE 5%-WATER 100 ML IVPB SCH (09:32)
[2019-05-15] MEDS: DEXTROSE 5%-0.45% SALINE 1,000 ML IV SCH (09:36)
[2019-05-15] MEDS ORDERED: MAG HYDROX/AL HYDROX/SIMETH 30 ML UNIT-DOSE CUP PO ONE ×2 (17:30→23:30)
--- NOTE | 2019-05-15 19:36 | PN ---
Progress Note, Physician History of Present Illness: stable - Current Medication List Current Medications: Active Medications Acetaminophen (Tylenol -) 650 mg PO Q6H PRN PRN Reason: FEVER Last Admin: 05/14/19 17:16 Dose: 650 mg Amlodipine Besylate (Norvasc -) [address] [facility] Last Admin: 05/15/19 09:32 Dose: 5 mg Atorvastatin Calcium (Lipitor -) [address] [facility] Last Admin: 05/14/19 21:46 Dose: 20 mg Heparin Sodium (Porcine) (Heparin -) 5,000 unit SQ BID [facility] Last Admin: 05/15/19 09:32 Dose: 5,000 unit Dextrose/Sodium Chloride (D5-1/2ns -) 1,000 mls @ 75 mls/hr IV [facility]IR [facility] Last Admin: 05/15/19 09:36 Dose: 75 mls/hr Ceftriaxone Sodium 2 gm/ (Dextrose) 100 mls @ 100 mls/hr IVPB DAILY [facility]; Protocol Last Admin: 05/15/19 09:32 Dose: 100 mls/hr Pantoprazole Sodium (Protonix -) [address] [facility] Last Admin: 05/15/19 09:32 Dose: 40 mg - Objective Vital Signs: Vital Signs Temperature 100.5 F H 05/15/19 18:52 Pulse Rate 72 05/15/19 18:52 Respiratory Rate 20 05/15/19 18:52 Blood Pressure 132/63 05/15/19 18:52 O2 Sat by Pulse Oximetry (%) 96 05/15/19 09:00 Constitutional: Yes: No Distress HENT: Yes: Atraumatic Neck: Yes: Supple Cardiovascular: Yes: Regular Rate and Rhythm Respiratory: Yes: CTA Bilaterally Gastrointestinal: Yes: Normal Bowel Sounds Extremities: Yes: WNL Neurological: Yes: Alert, Oriented Labs: CBC, BMP 05/15/19 05:36 05/15/19 05:36 INR, PTT INR 1.15 (0.83-1.09) H 05/12/19 14:45 Problem List - Problems (1) Pyelonephritis of left kidney Assessment/Plan: on abx Code(s): N12 - TUBULO-INTERSTITIAL NEPHRITIS, NOT SPCF ACUTE OR CHRONIC (2) Sepsis Assessment/Plan: IV ABX CXS SENT ID ON BOARD Code(s): A41.9 - SEPSIS, UNSPECIFIED ORGANISM Qualifiers: Sepsis type: sepsis due to unspecified organism Sepsis acute organ dysfunction status: unspecified Qualified Code(s): A41.9 - Sepsis, unspecified organism (3) HTN (hypertension) Assessment/Plan: ON MEDS Code(s): I10 - ESSENTIAL (PRIMARY) HYPERTENSION (4) HLD (hyperlipidemia) Code(s): E78.5 - HYPERLIPIDEMIA, UNSPECIFIED Assessment/Plan COVERING FOR DR RODRIGUEZ TODAY
[2019-05-15] MEDS: ATORVASTATIN CA 20 MG TABLET (FP) PO SCH (21:10)
[2019-05-15] MEDS ORDERED: ONDANSETRON 4 MG/2 ML VIAL IVPUSH PRN (23:10)
[2019-05-16] MEDS ORDERED: DEXTROSE 5%-WATER 100 ML IVPB ONE (09:04)
[2019-05-16] MEDS: PANTOPRAZOLE 40 MG TABLET PO SCH (09:17)
[2019-05-16] MEDS: amLODIPine BESYLATE 5 MG TABLET (FP) PO SCH (09:17)
[2019-05-16] MEDS: CEFTRIAXONE 2 GM in DEXTROSE 5%-WATER 100 ML IVPB SCH (09:18)
[2019-05-16] MEDS: HEPARIN NA (PORCINE) 5,000 UNITS/ML 1ML VIAL SQ SCH ×2 (09:18→21:17)
--- NOTE | 2019-05-16 12:00 | PN ---
Progress Note, Physician History of Present Illness: starting to feel better says she feels good - Current Medication List Current Medications: Active Medications Acetaminophen (Tylenol -) 650 mg PO Q6H PRN PRN Reason: FEVER Last Admin: 05/14/19 17:16 Dose: 650 mg Amlodipine Besylate (Norvasc -) 5 mg PO DAILY [facility] Last Admin: 05/16/19 09:17 Dose: 5 mg Atorvastatin Calcium (Lipitor -) 20 mg PO HS [facility] Last Admin: 05/15/19 21:10 Dose: 20 mg Heparin Sodium (Porcine) (Heparin -) 5,000 unit SQ BID [facility] Last Admin: 05/16/19 09:18 Dose: 5,000 unit Ceftriaxone Sodium 2 gm/ (Dextrose) 100 mls @ 100 mls/hr IVPB DAILY [facility]; Protocol Last Admin: 05/16/19 09:18 Dose: 100 mls/hr Ondansetron HCl (Zofran Injection) 4 mg IVPUSH Q6H PRN PRN Reason: NAUSEA AND/OR VOMITING Pantoprazole Sodium (Protonix -) 40 mg PO DAILY [facility] Last Admin: 05/16/19 09:17 Dose: 40 mg - Objective Vital Signs: Vital Signs Temperature 98.1 F 05/16/19 09:13 Pulse Rate 67 05/16/19 09:13 Respiratory Rate 20 05/16/19 09:13 Blood Pressure 129/57 L 05/16/19 09:13 O2 Sat by Pulse Oximetry (%) 97 05/15/19 21:00 Constitutional: Yes: No Distress, Calm Cardiovascular: Yes: Regular Rate and Rhythm Respiratory: Yes: Regular, CTA Bilaterally Gastrointestinal: Yes: Normal Bowel Sounds, Soft Musculoskeletal: Yes: WNL Extremities: Yes: WNL Neurological: Yes: Alert, Oriented Psychiatric: Yes: Alert, Oriented Labs: CBC, BMP 05/15/19 05:36 05/15/19 05:36 INR, PTT INR 1.15 (0.83-1.09) H 05/12/19 14:45 Assessment/Plan Problem List - Problems (1) Sepsis Code(s): A41.9 - SEPSIS, UNSPECIFIED ORGANISM Qualifiers: Sepsis type: sepsis due to unspecified organism Sepsis acute organ dysfunction status: unspecified Qualified Code(s): A41.9 - Sepsis, unspecified organism (2) UTI (urinary tract infection) Code(s): N39.0 - URINARY TRACT INFECTION, SITE NOT SPECIFIED Qualifiers: Urinary tract infection type: acute cystitis Hematuria presence: with hematuria Qualified Code(s): N30.01 - Acute cystitis with hematuria 3 gm negative bacteremia 4 weakness Assessment/Plan 78 y.o. female with PMH of HTN, GERD presents with c/o persistent fevers/rigors , lower abdominal pain/nausea, dysuria/urinary frequency, and generalized body aches. She states that the dysuria began while she was on a trip to [place] (Apr 30-) and started developing fever 5 days ago Sepsis UTI/Possible Acute Pyelonephritis Gram negative Bacteremia Leukocytosis Fever HTN HLD plan continue current mgmt continue abx
[2019-05-16] MEDS: MAG HYDROX/AL HYDROX/SIMETH 30 ML UNIT-DOSE CUP PO PRN (14:25)
--- NOTE | 2019-05-16 18:13 | PN ---
Progress Note, Physician History of Present Illness: stable - Current Medication List Current Medications: Active Medications Acetaminophen (Tylenol -) 650 mg PO Q6H PRN PRN Reason: FEVER Last Admin: 05/14/19 17:16 Dose: 650 mg Al Hydroxide/Mg Hydroxide (Mylanta Oral Suspension -) 30 ml PO Q6H PRN PRN Reason: INDIGESTION Last Admin: 05/16/19 14:25 Dose: 30 ml Amlodipine Besylate (Norvasc -) 5 mg PO DAILY [facility] Last Admin: 05/16/19 09:17 Dose: 5 mg Atorvastatin Calcium (Lipitor -) 20 mg PO HS [facility] Last Admin: 05/15/19 21:10 Dose: 20 mg Heparin Sodium (Porcine) (Heparin -) 5,000 unit SQ BID [facility] Last Admin: 05/16/19 09:18 Dose: 5,000 unit Ceftriaxone Sodium 2 gm/ (Dextrose) 100 mls @ 100 mls/hr IVPB DAILY [facility]; Protocol Last Admin: 05/16/19 09:18 Dose: 100 mls/hr Ondansetron HCl (Zofran Injection) 4 mg IVPUSH Q6H PRN PRN Reason: NAUSEA AND/OR VOMITING Pantoprazole Sodium (Protonix -) 40 mg PO DAILY [facility] Last Admin: 05/16/19 09:17 Dose: 40 mg - Objective Vital Signs: Vital Signs Temperature 97.8 F 05/16/19 14:35 Pulse Rate 68 05/16/19 14:35 Respiratory Rate 20 05/16/19 14:35 Blood Pressure 118/49 L 05/16/19 14:35 O2 Sat by Pulse Oximetry (%) 97 05/16/19 09:00 Constitutional: Yes: No Distress HENT: Yes: Atraumatic Neck: Yes: Supple Cardiovascular: Yes: Regular Rate and Rhythm Respiratory: Yes: CTA Bilaterally Gastrointestinal: Yes: Normal Bowel Sounds Extremities: Yes: WNL Edema: No Neurological: Yes: Alert, Oriented Labs: CBC, BMP 05/15/19 05:36 05/15/19 05:36 INR, PTT INR 1.15 (0.83-1.09) H 05/12/19 14:45 Problem List - Problems (1) Pyelonephritis of left kidney Assessment/Plan: on abx Code(s): N12 - TUBULO-INTERSTITIAL NEPHRITIS, NOT SPCF ACUTE OR CHRONIC (2) Sepsis Assessment/Plan: IV ABX CXS noted ID ON BOARD Code(s): A41.9 - SEPSIS, UNSPECIFIED ORGANISM Qualifiers: Sepsis type: sepsis due to unspecified organism Sepsis acute organ dysfunction status: unspecified Qualified Code(s): A41.9 - Sepsis, unspecified organism (3) HTN (hypertension) Code(s): I10 - ESSENTIAL (PRIMARY) HYPERTENSION (4) HLD (hyperlipidemia) Code(s): E78.5 - HYPERLIPIDEMIA, UNSPECIFIED Assessment/Plan COVERING FOR DR RODRIGUEZ TODAY
[2019-05-16] MEDS: ATORVASTATIN CA 20 MG TABLET (FP) PO SCH (21:18)
[2019-05-17] MEDS ORDERED: DEXTROSE 5%-WATER 100 ML IVPB ONE (08:30)
[2019-05-17] MEDS: HEPARIN NA (PORCINE) 5,000 UNITS/ML 1ML VIAL SQ SCH ×2 (09:19→21:00)
[2019-05-17] MEDS: amLODIPine BESYLATE 5 MG TABLET (FP) PO SCH (09:20)
[2019-05-17] MEDS: CEFTRIAXONE 2 GM in DEXTROSE 5%-WATER 100 ML IVPB SCH (09:20)
[2019-05-17] MEDS: PANTOPRAZOLE 40 MG TABLET PO SCH (09:20)
--- NOTE | 2019-05-17 09:43 | PN ---
Progress Note, Physician History of Present Illness: stable no new issues - Current Medication List Current Medications: Active Medications Acetaminophen (Tylenol -) 650 mg PO Q6H PRN PRN Reason: FEVER Last Admin: 05/14/19 17:16 Dose: 650 mg Al Hydroxide/Mg Hydroxide (Mylanta Oral Suspension -) 30 ml PO Q6H PRN PRN Reason: INDIGESTION Last Admin: 05/16/19 14:25 Dose: 30 ml Amlodipine Besylate (Norvasc -) 5 mg PO DAILY [facility] Last Admin: 05/17/19 09:20 Dose: 5 mg Atorvastatin Calcium (Lipitor -) 20 mg PO HS [facility] Last Admin: 05/16/19 21:18 Dose: 20 mg Heparin Sodium (Porcine) (Heparin -) 5,000 unit SQ BID [facility] Last Admin: 05/17/19 09:19 Dose: 5,000 unit Ceftriaxone Sodium 2 gm/ (Dextrose) 100 mls @ 100 mls/hr IVPB DAILY [facility]; Protocol Last Admin: 05/17/19 09:20 Dose: 100 mls/hr Ondansetron HCl (Zofran Injection) 4 mg IVPUSH Q6H PRN PRN Reason: NAUSEA AND/OR VOMITING Pantoprazole Sodium (Protonix -) 40 mg PO DAILY [facility] Last Admin: 05/17/19 09:20 Dose: 40 mg - Objective Vital Signs: Vital Signs Temperature 99.0 F 05/17/19 06:05 Pulse Rate 66 05/17/19 06:05 Respiratory Rate 20 05/17/19 06:05 Blood Pressure 144/70 05/17/19 06:05 O2 Sat by Pulse Oximetry (%) 97 05/16/19 21:00 Constitutional: Yes: No Distress, Calm Cardiovascular: Yes: S1, S2 Respiratory: Yes: Regular, CTA Bilaterally Gastrointestinal: Yes: Normal Bowel Sounds, Soft Musculoskeletal: Yes: WNL Extremities: Yes: WNL Neurological: Yes: Alert, Oriented Psychiatric: Yes: Alert, Oriented Labs: CBC, BMP 05/15/19 05:36 05/15/19 05:36 INR, PTT INR 1.15 (0.83-1.09) H 05/12/19 14:45 Assessment/Plan Problem List - Problems (1) Sepsis Code(s): A41.9 - SEPSIS, UNSPECIFIED ORGANISM Qualifiers: Sepsis type: sepsis due to unspecified organism Sepsis acute organ dysfunction status: unspecified Qualified Code(s): A41.9 - Sepsis, unspecified organism (2) UTI (urinary tract infection) Code(s): N39.0 - URINARY TRACT INFECTION, SITE NOT SPECIFIED Qualifiers: Urinary tract infection type: acute cystitis Hematuria presence: with hematuria Qualified Code(s): N30.01 - Acute cystitis with hematuria 3 gm negative bacteremia 4 weakness Assessment/Plan 78 y.o. female with PMH of HTN, GERD presents with c/o persistent fevers/rigors , lower abdominal pain/nausea, dysuria/urinary frequency, and generalized body aches. She states that the dysuria began while she was on a trip to [place] (Apr 30-) and started developing fever 5 days ago Sepsis UTI/Possible Acute Pyelonephritis Gram negative Bacteremia Leukocytosis Fever HTN HLD plan continue current mgmt continue abx
[2019-05-17] MEDS: MAG HYDROX/AL HYDROX/SIMETH 30 ML UNIT-DOSE CUP PO PRN (17:31)
[2019-05-17] MEDS: ATORVASTATIN CA 20 MG TABLET (FP) PO SCH (21:00)
--- NOTE | 2019-05-17 22:10 | PN ---
Progress Note, Physician - Current Medication List Current Medications: Active Medications Acetaminophen (Tylenol -) 650 mg PO Q6H PRN PRN Reason: FEVER Last Admin: 05/14/19 17:16 Dose: 650 mg Al Hydroxide/Mg Hydroxide (Mylanta Oral Suspension -) 30 ml PO Q6H PRN PRN Reason: INDIGESTION Last Admin: 05/17/19 17:31 Dose: 30 ml Amlodipine Besylate (Norvasc -) 5 mg PO DAILY [facility] Last Admin: 05/17/19 09:20 Dose: 5 mg Atorvastatin Calcium (Lipitor -) 20 mg PO HS [facility] Last Admin: 05/17/19 21:00 Dose: 20 mg Heparin Sodium (Porcine) (Heparin -) 5,000 unit SQ BID [facility] Last Admin: 05/17/19 21:00 Dose: 5,000 unit Ceftriaxone Sodium 2 gm/ (Dextrose) 100 mls @ 100 mls/hr IVPB DAILY [facility]; Protocol Last Admin: 05/17/19 09:20 Dose: 100 mls/hr Ondansetron HCl (Zofran Injection) 4 mg IVPUSH Q6H PRN PRN Reason: NAUSEA AND/OR VOMITING Pantoprazole Sodium (Protonix -) 40 mg PO DAILY [facility] Last Admin: 05/17/19 09:20 Dose: 40 mg - Objective Vital Signs: Vital Signs Temperature 99.2 F 05/17/19 18:00 Pulse Rate 68 05/17/19 18:00 Respiratory Rate 20 05/17/19 18:00 Blood Pressure 130/60 05/17/19 18:00 O2 Sat by Pulse Oximetry (%) 95 05/17/19 21:00 Labs: CBC, BMP 05/15/19 05:36 05/15/19 05:36 INR, PTT INR 1.15 (0.83-1.09) H 05/12/19 14:45 Problem List - Problems (1) Sepsis Code(s): A41.9 - SEPSIS, UNSPECIFIED ORGANISM Qualifiers: Sepsis type: sepsis due to unspecified organism Sepsis acute organ dysfunction status: unspecified Qualified Code(s): A41.9 - Sepsis, unspecified organism (2) HTN (hypertension) Code(s): I10 - ESSENTIAL (PRIMARY) HYPERTENSION (3) HLD (hyperlipidemia) Code(s): E78.5 - HYPERLIPIDEMIA, UNSPECIFIED
[2019-05-18] MEDS ORDERED: DEXTROSE 5%-WATER 100 ML IVPB ONE (10:36)
[2019-05-18] MEDS: CEFTRIAXONE 2 GM in DEXTROSE 5%-WATER 100 ML IVPB SCH (10:40)
[2019-05-18] MEDS: amLODIPine BESYLATE 5 MG TABLET (FP) PO SCH (10:41)
[2019-05-18] MEDS: PANTOPRAZOLE 40 MG TABLET PO SCH (10:41)
[2019-05-18] MEDS: HEPARIN NA (PORCINE) 5,000 UNITS/ML 1ML VIAL SQ SCH ×2 (10:41→21:02)
--- NOTE | 2019-05-18 12:12 | PN ---
Progress Note, Physician History of Present Illness: stable no new issues - Current Medication List Current Medications: Active Medications Acetaminophen (Tylenol -) 650 mg PO Q6H PRN PRN Reason: FEVER Last Admin: 05/14/19 17:16 Dose: 650 mg Documented by: Al Hydroxide/Mg Hydroxide (Mylanta Oral Suspension -) 30 ml PO Q6H PRN PRN Reason: INDIGESTION Last Admin: 05/17/19 17:31 Dose: 30 ml Documented by: Amlodipine Besylate (Norvasc -) 5 mg PO DAILY [facility] Last Admin: 05/18/19 10:41 Dose: 5 mg Documented by: Atorvastatin Calcium (Lipitor -) 20 mg PO HS [facility] Last Admin: 05/17/19 21:00 Dose: 20 mg Documented by: Heparin Sodium (Porcine) (Heparin -) 5,000 unit SQ BID [facility] Last Admin: 05/18/19 10:41 Dose: 5,000 unit Documented by: Ceftriaxone Sodium 2 gm/ (Dextrose) 100 mls @ 100 mls/hr IVPB DAILY [facility]; Protocol Last Admin: 05/18/19 10:40 Dose: 100 mls/hr Documented by: Ondansetron HCl (Zofran Injection) 4 mg IVPUSH Q6H PRN PRN Reason: NAUSEA AND/OR VOMITING Pantoprazole Sodium (Protonix -) 40 mg PO DAILY [facility] Last Admin: 05/18/19 10:41 Dose: 40 mg Documented by: - Objective Vital Signs: Vital Signs Temperature 98.7 F 05/18/19 08:26 Pulse Rate 69 05/18/19 08:26 Respiratory Rate 18 05/18/19 08:26 Blood Pressure 127/61 05/18/19 08:26 O2 Sat by Pulse Oximetry (%) 98 05/18/19 08:30 Constitutional: Yes: No Distress, Calm Cardiovascular: Yes: S1, S2 Respiratory: Yes: Regular, CTA Bilaterally Gastrointestinal: Yes: Normal Bowel Sounds, Soft Musculoskeletal: Yes: WNL Extremities: Yes: WNL Neurological: Yes: Alert, Oriented Psychiatric: Yes: Alert, Oriented Labs: CBC, BMP 05/15/19 05:36 05/15/19 05:36 INR, PTT INR 1.15 (0.83-1.09) H 05/12/19 14:45 Assessment/Plan Problem List - Problems (1) Sepsis Code(s): A41.9 - SEPSIS, UNSPECIFIED ORGANISM Qualifiers: Sepsis type: sepsis due to unspecified organism Sepsis acute organ dysfunction status: unspecified Qualified Code(s): A41.9 - Sepsis, unspecified organism (2) UTI (urinary tract infection) Code(s): N39.0 - URINARY TRACT INFECTION, SITE NOT SPECIFIED Qualifiers: Urinary tract infection type: acute cystitis Hematuria presence: with hematuria Qualified Code(s): N30.01 - Acute cystitis with hematuria 3 gm negative bacteremia 4 weakness Assessment/Plan 78 y.o. female with PMH of HTN, GERD presents with c/o persistent fevers/rigors, lower abdominal pain/nausea, dysuria/urinary frequency, and generalized body aches. She states that the dysuria began while she was on a trip to [place] (Apr 30-) and started developing fever 5 days ago Sepsis UTI/Possible Acute Pyelonephritis Gram negative Bacteremia Leukocytosis Fever HTN HLD plan continue current mgmt continue abx
--- NOTE | 2019-05-18 18:04 | PN ---
Progress Note, Physician History of Present Illness: stable - Current Medication List Current Medications: Active Medications Acetaminophen (Tylenol -) 650 mg PO Q6H PRN PRN Reason: FEVER Last Admin: 05/14/19 17:16 Dose: 650 mg Documented by: Al Hydroxide/Mg Hydroxide (Mylanta Oral Suspension -) 30 ml PO Q6H PRN PRN Reason: INDIGESTION Last Admin: 05/17/19 17:31 Dose: 30 ml Documented by: Amlodipine Besylate (Norvasc -) 5 mg PO DAILY [facility] Last Admin: 05/18/19 10:41 Dose: 5 mg Documented by: Atorvastatin Calcium (Lipitor -) 20 mg PO HS [facility] Last Admin: 05/17/19 21:00 Dose: 20 mg Documented by: Heparin Sodium (Porcine) (Heparin -) 5,000 unit SQ BID [facility] Last Admin: 05/18/19 10:41 Dose: 5,000 unit Documented by: Ceftriaxone Sodium 2 gm/ (Dextrose) 100 mls @ 100 mls/hr IVPB DAILY [facility]; Protocol Last Admin: 05/18/19 10:40 Dose: 100 mls/hr Documented by: Ondansetron HCl (Zofran Injection) 4 mg IVPUSH Q6H PRN PRN Reason: NAUSEA AND/OR VOMITING Pantoprazole Sodium (Protonix -) 40 mg PO DAILY [facility] Last Admin: 05/18/19 10:41 Dose: 40 mg Documented by: - Objective Vital Signs: Vital Signs Temperature 97.4 F L 05/18/19 14:38 Pulse Rate 66 05/18/19 14:38 Respiratory Rate 18 05/18/19 14:38 Blood Pressure 128/58 L 05/18/19 14:38 O2 Sat by Pulse Oximetry (%) 98 05/18/19 08:30 Constitutional: Yes: No Distress HENT: Yes: Atraumatic Neck: Yes: Supple Cardiovascular: Yes: Regular Rate and Rhythm Respiratory: Yes: CTA Bilaterally Gastrointestinal: Yes: Normal Bowel Sounds Extremities: Yes: WNL Edema: No Neurological: Yes: Alert, Oriented Labs: CBC, BMP 05/15/19 05:36 05/15/19 05:36 INR, PTT INR 1.15 (0.83-1.09) H 05/12/19 14:45 Problem List - Problems (1) Pyelonephritis of left kidney Assessment/Plan: on abx Code(s): N12 - TUBULO-INTERSTITIAL NEPHRITIS, NOT SPCF ACUTE OR CHRONIC (2) Sepsis Assessment/Plan: IV ABX CXS noted ID ON BOARD Code(s): A41.9 - SEPSIS, UNSPECIFIED ORGANISM Qualifiers: Sepsis type: sepsis due to unspecified organism Sepsis acute organ dysfunction status: unspecified Qualified Code(s): A41.9 - Sepsis, unspecified organism (3) HTN (hypertension) Code(s): I10 - ESSENTIAL (PRIMARY) HYPERTENSION (4) HLD (hyperlipidemia) Code(s): E78.5 - HYPERLIPIDEMIA, UNSPECIFIED Assessment/Plan COVERING FOR DR RODRIGUEZ TODAY
[2019-05-18] MEDS: MAG HYDROX/AL HYDROX/SIMETH 30 ML UNIT-DOSE CUP PO PRN (18:27)
[2019-05-18] MEDS: ATORVASTATIN CA 20 MG TABLET (FP) PO SCH (21:02)
--- NOTE | 2019-05-19 10:06 | PN ---
Progress Note, Physician History of Present Illness: stable no new issues - Current Medication List Current Medications: Active Medications Acetaminophen (Tylenol -) 650 mg PO Q6H PRN PRN Reason: FEVER Last Admin: 05/14/19 17:16 Dose: 650 mg Documented by: Al Hydroxide/Mg Hydroxide (Mylanta Oral Suspension -) 30 ml PO Q6H PRN PRN Reason: INDIGESTION Last Admin: 05/18/19 18:27 Dose: 30 ml Documented by: Amlodipine Besylate (Norvasc -) 5 mg PO DAILY [facility] Last Admin: 05/18/19 10:41 Dose: 5 mg Documented by: Atorvastatin Calcium (Lipitor -) 20 mg PO HS [facility] Last Admin: 05/18/19 21:02 Dose: 20 mg Documented by: Heparin Sodium (Porcine) (Heparin -) 5,000 unit SQ BID [facility] Last Admin: 05/18/19 21:02 Dose: 5,000 unit Documented by: Ceftriaxone Sodium 2 gm/ (Dextrose) 100 mls @ 100 mls/hr IVPB DAILY [facility]; Protocol Last Admin: 05/18/19 10:40 Dose: 100 mls/hr Documented by: Ondansetron HCl (Zofran Injection) 4 mg IVPUSH Q6H PRN PRN Reason: NAUSEA AND/OR VOMITING Pantoprazole Sodium (Protonix -) 40 mg PO DAILY [facility] Last Admin: 05/18/19 10:41 Dose: 40 mg Documented by: - Objective Vital Signs: Vital Signs Temperature 98.5 F 05/19/19 06:00 Pulse Rate 58 L 05/19/19 06:00 Respiratory Rate 18 05/19/19 06:00 Blood Pressure 133/53 L 05/19/19 06:00 O2 Sat by Pulse Oximetry (%) 98 05/18/19 21:00 Constitutional: Yes: No Distress, Calm Cardiovascular: Yes: S1, S2 Respiratory: Yes: Regular, CTA Bilaterally Gastrointestinal: Yes: Normal Bowel Sounds, Soft Musculoskeletal: Yes: WNL Extremities: Yes: WNL Neurological: Yes: Alert, Oriented Psychiatric: Yes: Alert, Oriented Labs: CBC, BMP 05/15/19 05:36 05/15/19 05:36 INR, PTT INR 1.15 (0.83-1.09) H 05/12/19 14:45 Assessment/Plan Problem List - Problems (1) Sepsis Code(s): A41.9 - SEPSIS, UNSPECIFIED ORGANISM Qualifiers: Sepsis type: sepsis due to unspecified organism Sepsis acute organ dysfunction status: unspecified Qualified Code(s): A41.9 - Sepsis, unspecified organism (2) UTI (urinary tract infection) Code(s): N39.0 - URINARY TRACT INFECTION, SITE NOT SPECIFIED Qualifiers: Urinary tract infection type: acute cystitis Hematuria presence: with hematuria Qualified Code(s): N30.01 - Acute cystitis with hematuria 3 gm negative bacteremia 4 weakness Assessment/Plan 78 y.o. female with PMH of HTN, GERD presents with c/o persistent fevers/rigors, lower abdominal pain/nausea, dysuria/urinary frequency, and generalized body aches. She states that the dysuria began while she was on a trip to [place] (Apr 30-) and started developing fever 5 days ago Sepsis UTI/Possible Acute Pyelonephritis Gram negative Bacteremia Leukocytosis Fever HTN HLD plan continue current mgmt continue abx can stop abx after todays dose
[2019-05-19] MEDS ORDERED: DEXTROSE 5%-WATER 100 ML IVPB ONE (10:18)
[2019-05-19] MEDS: CEFTRIAXONE 2 GM in DEXTROSE 5%-WATER 100 ML IVPB SCH (10:20)
[2019-05-19] MEDS: HEPARIN NA (PORCINE) 5,000 UNITS/ML 1ML VIAL SQ SCH (10:20)
[2019-05-19] MEDS: amLODIPine BESYLATE 5 MG TABLET (FP) PO SCH (10:21)
[2019-05-19] MEDS: PANTOPRAZOLE 40 MG TABLET PO SCH (10:21)
[2019-05-19 14:21] VITALS: BP 122/72; PULSE 65; TEMP 97.5
== END 2019-05-19 16:49 | disposition home or self-care (01) | DRG 872 ==
LOC: JER 14:11 → JERBED 15:53 → J7W 20:20 → UNDODISIN 05-18 15:14
PROVIDERS: ADMIT Internal Medicine; ATTEND Internal Medicine
DX: A41.50 Gram-negative sepsis, unspecified (principal); N39.0 Urinary tract infection, site not specified; N12 Tubulo-interstitial nephritis, not specified as acute or chronic; K21.9 Gastro-esophageal reflux disease without esophagitis; I10 Essential (primary) hypertension; D72.829 Elevated white blood cell count, unspecified; E78.5 Hyperlipidemia, unspecified
CPT/HCPCS: 36415; 71045-TC-FY; 80053; 81003; 82550; 82553; 83605; 84484; 85025; 85027; 85610; 85730; 87040; 87086; 87186; 93005; 93010; 97116-GP; 97161-GP; 99285-25; J1644; J7030

== ENCOUNTER 2022-11-03 14:38 | Emergency (ER) | payer OTHER ==
[2022-11-03 14:52] VITALS: BP 166/72; PULSE 73; RESP 20; TEMP 98.2; BMI 34.3
[2022-11-03 16:20] LABS: HEMATOCRIT 45.2 % (32.4-45.2); MCH 30.6 pg (25.7-33.7); MCHC 33.1 g/dl (32.0-36.0); MEAN CELL VOLUME 92.2 fl (80-96); MEAN PLT VOLUME 9.6 fl (7.5-11.1); PLATELET COUNT 169.1 10^3/uL (134-434); WHITE BLOOD COUNT 7.6 10^3/uL (4.0-10.8)
[2022-11-03 16:45] LABS: ALBUMIN 4.2 g/dl (3.4-5.0); BLOOD UREA NITROGEN 16.7 mg/dl (7-18); CALCIUM 9.8 mg/dl (8.5-10.1); CREATININE 0.6 mg/dl (0.6-1.3); POTASSIUM 4.1 mmol/L (3.5-5.1); SGOT/AST 21.2 U/L (15-37); SGPT/ALT 30.7 U/L (7-52); TOT PROT 6.5 g/dl (6.4-8.2)
[2022-11-03 16:58] LABS: PLATELET ESTIMATE ADEQUATE
[2022-11-03 18:37] LABS: BILIRUBIN,TOTAL 0.4 mg/dL (0.2-1)
== END 2022-11-03 18:02 | disposition home or self-care (01) ==
LOC: FER 14:38
DX: R00.2 Palpitations (principal)
CPT/HCPCS: 36415; 71045-TC-FY; 80053; 83735; 84443; 84484; 85027; 93005; 93010; 99285-25

== ENCOUNTER 2024-03-11 14:20 | Emergency (ER) | payer OTHER ==
[2024-03-11 14:32] VITALS: RESP 18; BMI 30.8
[2024-03-11 14:36] VITALS: BP 145/64; PULSE 78; TEMP 97.8
[2024-03-11] MEDS ORDERED: ACETAMINOPHEN 500 MG TABLET (FP) ONE (15:23)
[2024-03-11] MEDS: ACETAMINOPHEN 500 MG TABLET (FP) PO ONE (15:26)
== END 2024-03-11 17:00 | disposition home or self-care (01) ==
LOC: FER 14:20
DX: S42.201A Unspecified fracture of upper end of right humerus, initial encounter for closed fracture (principal); W01.198A Fall on same level from slipping, tripping and stumbling with subsequent striking against other object, initial encounter
CPT/HCPCS: 73030-TC-RT-FY; 73060-TC-RT-FY; 99284-25